=== PATIENT | male | born 1975 | race African-American/Black ===

== ENCOUNTER 2017-11-08 16:44 | Emergency (ER) | payer SELFPAY ==
[~2017-11-08] VITALS: Ht 190.5 cm; Wt 112.0 kg
[2017-11-08 16:53] VITALS: BP 154/92
[2017-11-08] MEDS ORDERED: BUPIVACAINE 0.25% ONE (16:54)
[2017-11-08] MEDS ORDERED: LIDOCAINE-MPF 1%, 5ML ONE (16:54)
[2017-11-08] MEDS ORDERED: PLEASE ENTER ALLERGIES MC SCH (17:00)
[2017-11-08] MEDS ORDERED: LIDOCAINE-MPF 1%, 5ML INFIL ONE (17:00)
[2017-11-08] MEDS ORDERED: DIPH,PERTUSS(ACELL),TET VAC/PF 0.5 ML IM-VACC ONE ×2 (17:00→17:38)
[2017-11-08] MEDS ORDERED: BUPIVACAINE/PF 0.25% INFIL ONE (17:00)
[2017-11-08] MEDS ORDERED: CEFAZOLIN 1,000 MG IM ONE (17:30)
[2017-11-08] MEDS ORDERED: CEFAZOLIN 1,000 MG ONE (17:38)
[2017-11-08] MEDS ORDERED: BACITRACIN ZINC OINT 500U/GM, 0.9 GM ONE (18:46)
== END 2017-11-08 19:10 | disposition home or self-care (01) ==
LOC: ED 19:04
DX: S61.411A Laceration without foreign body of right hand, initial encounter (principal); W26.0XXA Contact with knife, initial encounter; Y93.89 Activity, other specified; Y92.89 Other specified places as the place of occurrence of the external cause; Y99.8 Other external cause status
CPT/HCPCS: 12002; 73130; 90471; 90715; 96372; 99284; J0690; J3490